=== PATIENT | female | born 1980 | race Caucasian/White ===

== ENCOUNTER 2020-03-14 12:16 | Outpatient (REF) | payer OTHER, SELFPAY | END 2020-03-14 12:17 | disposition home or self-care (01) | LOC: HO.LAB 12:16 | PROVIDERS: Visit Provider Internal Medicine | DX: Z20.828 Contact with and (suspected) exposure to other viral communicable diseases (principal) | CPT/HCPCS: 87635 ==

== ENCOUNTER 2020-04-22 10:00 | Outpatient (RCR) | payer OTHER, SELFPAY | END 2020-04-25 23:55 | disposition home or self-care (01) | LOC: HO.PAOS 10:00 | PROVIDERS: Visit Provider Counselor Mental Health | DX: F43.23 Adjustment disorder with mixed anxiety and depressed mood (principal); F10.10 Alcohol abuse, uncomplicated; Z63.0 Problems in relationship with spouse or partner | CPT/HCPCS: 90834 ==

== ENCOUNTER 2021-01-31 10:32 | Outpatient (REF) | payer OTHER, SELFPAY | END 2021-01-31 10:33 | disposition home or self-care (01) | LOC: HO.LAB 10:32 | PROVIDERS: PCP Internal Medicine; Visit Provider Internal Medicine | DX: Z20.822 Contact with and (suspected) exposure to COVID-19 (principal) | CPT/HCPCS: C9803; U0003; U0005 ==

== ENCOUNTER → 2021-10-27 10:54 | Outpatient (BNVA) | payer SELFPAY | PROVIDERS: PCP Internal Medicine; Visit Provider Internal Medicine | DX: Z02.79 Encounter for issue of other medical certificate (principal) ==

== ENCOUNTER 2021-12-13 22:20 | Emergency (ER) | payer OTHER, SELFPAY ==
[2021-12-13 22:26] VITALS: BP 154/93; PULSE 74; RESP 18; TEMP 36.6; O2SAT 99; BMI 30.9
--- NOTE | 2021-12-13 23:32 | ED_ITS ---
HPI - General Adult General Chief complaint: General Medical Stated complaint: Dental pain Time Seen by Provider: 12/13/21 23:32 Source: patient Mode of arrival: ambulatory Limitations: no limitations History of Present Illness HPI narrative: 41-year-old female presenting to the emergency department complaints of tooth pain to left upper teeth and left lower teeth times a week and half. Patient tells me that about a year ago she lost a filling to the left upper to, since then she has been experiencing sensitivity to that area. She now reports pain particularly with hot and cold foods, she tells me it is a sharp pain at times radiates to her jaw. She reports it has been worsening over the past week and half however she has been on vacation has not been able to see a dentist. She tells me she does have a dentist that she can see. She also reports new onset nausea, diarrhea without abdominal pain that started today. Denies any sick contacts, denies changes in dietary habits. Denies fevers, chills, chest pain, shortness of breath, nausea, vomiting, abdominal pain, weakness. Onset (ago): week(s) (1.5) Location: mouth Related Data Home Medications Medication Instructions Recorded Confirmed copper 380 square mm intrauterine intrauterine 02/12/21 device (ParaGard T 380A) fluoxetine 40 mg capsule (Prozac) 40 mg PO DAILY 02/12/21 Previous Rx's Medication Instructions Recorded cephalexin 500 mg capsule 500 mg PO Q8H 7 days #21 caps 02/12/21 valacyclovir 1 gram tablet 2,000 mg PO Q12H 1 day #4 tabs 02/12/21 amoxicillin 500 mg capsule 500 mg PO BID 10 days #20 caps 12/13/21 ondansetron 4 mg disintegrating 4 mg PO ONCE PRN nausea and 12/13/21 tablet vomiting #10 tabs Allergies Allergy/AdvReac Type Severity Reaction Status Date / Time mushroom [MUSHROOM] AdvReac Intermediate NAUSEA & Verified 12/13/21 22:25 VOMITING Review of Systems Review of Systems: Constitutional : No Weight loss, No Fever, No Chills, No Fatigue, No Malaise ENT/Mouth : No sore throat, No Rhinorrhea, + tooth pain, Eyes: No Eye Pain, No Swelling, No Redness Cardiovascular : No Chest Pain, No SOB, No Dyspnea on Exertion, No Orthopnea, No Edema, No Palpitations Respiratory : No Cough, No Sputum, No Wheezing Gastrointestinal : + Nausea, No Vomiting, + Diarrhea, No Constipation, No abdominal Pain, No Hematochezia, No Melena Genitourinary : No Dysuria, No Urinary Frequency, No Hematuria, Musculoskeletal : No joint pain, No Myalgias, No Joint Swelling Skin : No Skin Lesions, No rash Neuro : No Weakness, No Numbness, No Dizziness, No Headache All other systems reviewed and are negative Yes all other systems are reviewed and are negative [facility] Past Medical History Attestation statement: The following information was validated with the patient. Source: old records reviewed and nursing notes reviewed Social History Social History Advance Directives: No Advance Directives Information Provided: No Physical Exam ED Vital Signs: Vital Signs - 24 hr 12/13/21 22:26 Temperature 97.8 F Pulse Rate 74 Respiratory Rate 18 Blood Pressure 154/93 H Pulse Oximetry 99 Oxygen Delivery Method Room Air BMI result Body Mass Index 30.9 vss Appearance: Alert.? Oriented X3.? No acute distress.? Patient speaking in full sentences, controlling secretions well. Head: Normocephalic, atraumatic, no step-offs or deformities Eyes: Pupils equal, round and reactive to light.? ENT: Pharynx normal.?+ pain w. palpation & percussion to teeth 14 &15 & 19 and to the surrounding gums. No palpable abscesses. Uvula midline. Neck: Normal inspection.? Neck supple.? CVS: Normal heart rate and rhythm.? Pulses normal.? Respiratory: No respiratory distress.? Breath sounds normal.? Abdomen: Soft and nontender.? Skin: Skin warm and dry.? Normal skin color.? Normal skin turgor.? Extremities: No lower extremity edema.? No calf ttp. 5/5 strength to bilateral upper and lower extremities Neuro: Oriented X 3.? No motor deficit.? No sensory deficit. CN 2-12 intact Course Reevaluation(s) Reevaluation #1: I advised patient to take amoxicillin 500 mg p.o. b.i.d. times 10 days. And to follow-up with patient's dentist. Educated on worrisome signs and symptoms and when to return. Also educated on proper hydration and bland diet. At this time I feel comfortable with discharge home. Time: 23:36 Medical Decision Making [facility] Narrative Medical decision making narrative: [id number] 41-year-old female presenting with tooth/gum pain times a week worsening, nausea and diarrhea for a few days. Physical examination significant for slight tenderness to palpation of tooth 14, 15, 19 and discomfort with percussion. Pain with palpation to the surrounding gum however no palpable abscesses. No signs of ludwigs, peritonsillar abscess, epiglottitis. Nausea and vomiting likely viral. No signs of acute abdomen. Likely caries or fx of tooth Plan at this time is to obtain a COVID test. Patient will be discharged home on amoxicillin. Medical Records Medical records reviewed: Yes I reviewed the patient's medical records. Lab Data Lab results reviewed: Yes I reviewed the patient's lab results. Critical Care Time Critical Care Time Critical Care Time: No Discharge Plan Discharge Clinical Impression: Pain in tooth, Nausea, Diarrhea, Viral infection Patient Disposition: Home, Self-Care Instructions: Acute Nausea and Vomiting (ED), Acute Diarrhea (ED), Viral Syndrome (ED), Toothache (ED) Additional Instructions: Take your medications as prescribed. If you were prescribed antibiotics today, it is important that you take your medication to their entirety, do not skip any doses, do not finish them early. Follow-up with your primary care provider this week. Please follow-up with her dentist. Return to the emergency department with new or worsening symptoms. Such as fevers, chills, chest pain, shortness of breath, nausea, vomiting, dizziness, headache, vision changes, lethargy Drink plenty of fluids and follow a bland diet, chicken, rice, vegetables. In case of emergency call 911 Prescriptions: New amoxicillin 500 mg capsule 500 mg PO BID 10 Days Qty: 20 0RF ondansetron 4 mg tablet,disintegrating 4 mg PO ONCE PRN (Reason: nausea and vomiting) Qty: 10 0RF No Action cephalexin 500 mg capsule 500 mg PO Q8H 7 Days Qty: 21 0RF valacyclovir 1 gram tablet 2,000 mg PO Q12H 1 Days Qty: 4 0RF Referrals: Physician,Unknown J [Physician] - 2 days
[2021-12-14] MEDS: Amoxicillin 500 MG CAPSULE PO (00:17)
[2021-12-14] MEDS: Ketorolac Tromethamine 15 MG/ML VIAL 30 MG IM (00:17)
[2021-12-14 00:37] LABS: COVID-19 Test Negative (Negative)
== END 2021-12-14 00:25 | disposition home or self-care (01) ==
PROVIDERS: Physician Assistant; Emergency Provider Emergency Medicine; PCP Internal Medicine
DX: K08.89 Other specified disorders of teeth and supporting structures (principal); B34.9 Viral infection, unspecified; R11.0 Nausea; R19.7 Diarrhea, unspecified; Z20.822 Contact with and (suspected) exposure to COVID-19
CPT/HCPCS: 87635; 96372; 99283; 99284; J1885

== ENCOUNTER 2025-02-16 19:59 | Emergency (ER) | payer OTHER, SELFPAY ==
--- NOTE | ~2025-02-16 | XR_ITS ---
CLINICAL HISTORY: pain and edema 3 view right ankle Comparison: None provided Findings: No acute fractures or dislocations. Distal fibula and tibia are normal. Tibial plafond is normal. Subtalar articulations are normal. No significant loss of joint space, osteophytes, or erosions. No ankle effusion. No radiopaque foreign body. IMPRESSION: 1. No acute fracture, subluxation, or dislocation. This document has been electronically signed by: Orlando Barrett III, MD PHD on 02/16/2025 22:16:45
--- NOTE | ~2025-02-16 | XR_ITS ---
CLINICAL HISTORY: pain and edema 3 view right foot Comparison: CR - XR ANKLE RT MIN 3V - 02/16/25 21:20 EDT Findings: No fractures or dislocations. Talus and navicular are normally aligned. Calcaneus and cuboid are normally aligned. Cuneiforms are normal. Metatarsals and phalanges are normal. No significant arthritic change or erosions. No effusion. No radiopaque foreign body. IMPRESSION: 1. No acute fracture, subluxation or dislocation.. This document has been electronically signed by: Orlando Barrett III, MD PHD on 02/16/2025 22:17:52
[2025-02-16 20:51] VITALS: BP 167/91; PULSE 75; RESP 22; TEMP 36.7; O2SAT 99; BMI 34.0
--- NOTE | 2025-02-16 22:57 | ED_ITS ---
HPI - Extremity Problem General Chief complaint: Extremity Problem Stated complaint: right foot pain Time Seen by Provider: 02/16/25 22:16 History of Present Illness HPI Narrative: Patient is a 44-year-old female complaining of pain to the right ankle and foot after running. Patient is complaining of pain to the plantar area of her right foot. There was no trauma. Complaining of some mild edema. From home. [place] a snap in that area. Related Data Home Medications ?Medication ?Instructions ?Recorded ?Confirmed copper 380 square mm intrauterine intrauterine 1 device (ParaGard T 380A) fluoxetine 40 mg capsule (Prozac) 40 mg PO DAILY 02/12 Previous Rx's ?Medication ?Instructions ?Recorded cephalexin 500 mg capsule 500 mg PO Q8H 7 days #21 cap s 02/12/21 valacyclovir 1 gram tablet 2,000 mg (2 x 1 gram) PO Q1 2H 1 02/12/21 day #4 tabs amoxicillin 500 mg capsule 500 mg PO BID 10 days #20 c aps 12/13/21 ondansetron 4 mg disintegrating 4 mg PO ONCE PRN nause a and 12/13/21 tablet vomiting #10 tabs Allergies Allergy/AdvReac Type Severity Reaction Status Date / Time mushroom (MUSHROOM) AdvReac Intermediate NAUSEA & Verified 02/16/25 20:51 VOMITING Review of Systems Review of Systems: Foot pain [facility] Past Medical History Attestation statement: The following information was validated with the patient. Physical Exam Exam: Exam: Appearance: Alert. Oriented X3. No acute distress. Eyes: Pupils equal, round and reactive to light. ENT: Pharynx normal. Neck: Normal inspection. Neck supple. No lymph nodes noted. No crepitus CVS: Normal heart rate and rhythm. Pulses normal. Normal S1 and S2 Respiratory: No respiratory distress. Breath sounds normal. No Wheezing. No rales Abdomen: Soft and nontender. No rigidity. No distention. good BS x4 Skin: Skin warm and dry. Normal skin color. Normal skin turgor. Extremities: No lower extremity edema. Neurovascular intact to all extremities. No Lacerations. No Rash Neuro: Oriented X 3. No motor deficit. No sensory deficit. Moving all extermities. No slurred speech. Examination of the right foot showed no tenderness on palpation of the Achilles tendon. No tenderness on palpation of the calf. No tenderness on squeezing the cast. Dorsiflexion intact. Plantar flexion of the foot intact. Pain at the aponeurosis on the plantar surface of the right foot. There is good movement of the toes. There is good sensation. There is good pulses 2+ at dorsalis pedis and patient's skin is intact. Vital Signs: Vital Signs: Last Vital Signs Temp 98.1 F 02/16/25 20:51 Pulse 75 02/16/25 20:51 Resp 22 H 02/16/25 20:51 BP 167/91 H 02/16/25 20:51 Pulse Ox 99 02/16/25 20:51 O2 Del Method Room Air 02/16/25 20:51 BMI result Body Mass Index 34.0 Medical Decision Making Medical Decision Making [facility] Narrative: Question plantar fasciitis versus tendon tear nevertheless will have patient use Motrin follow-up on an outpatient basis no signs of Achilles tear. In stable condition follow-up with orthopedic on an outpatient basis crutches for comfort in stable condition Differential Diagnosis Differential Diagnoses: The differential diagnosis associated with the presentation includes Sprain fracture Lab Data [facility] Lab Attestation statement: I reviewed the patient's lab results. Independent Interpretation I performed an independent interpretation of an: Plain X-Ray (No acute fracture noted) Radiology Impression Discussion of test interpretation with radiology: I have reviewed the radiologist's reading. Prescription Management I considered prescription management with: Pain Medication Patient already has Motrin at home Social Determinants Patient?s care significantly limited by Social Determinants of Health including: Problems related to primary support group Discharge Plan Discharge Clinical Impression: Foot sprain Patient Disposition: Home, Self-Care Instructions: Crutch Instructions (ED), Foot Sprain (ED) Prescriptions: No Action amoxicillin 500 mg capsule 500 mg PO BID 10 Days Qty: 20 0RF ondansetron 4 mg tablet,disintegrating 4 mg PO ONCE PRN (Reason: nausea and vomiting) Qty: 10 0RF cephalexin 500 mg capsule 500 mg PO Q8H 7 Days Qty: 21 0RF valacyclovir 1 gram tablet 2,000 mg PO Q12H 1 Days Qty: 4 0RF Referrals: August Price MD [Physician, Orthopedics] - 02/19/25 Stand Alone Forms: Work/School Release Print Language: [place]
--- NOTE | 2025-02-16 23:17 | MHC.EDTECH ---
anibal bandage given to patient per patient request, she would like to wash her feet before she applies the anibal wrap. patient states my mother is a nurse she will be able to help me. crutches set up for patient at 5'6 and patient ambulates slow and steady
[2025-02-16 23:24] VITALS: BP 167/91; PULSE 75; RESP 22; TEMP 36.7; O2SAT 99
== END 2025-02-16 23:25 | disposition home or self-care (01) ==
PROVIDERS: Emergency Provider Emergency Medicine Emergency Medical Services; PCP Internal Medicine
DX: S93.601A Unspecified sprain of right foot, initial encounter (principal); M79.671 Pain in right foot; M25.571 Pain in right ankle and joints of right foot; R60.0 Localized edema; X50.1XXA Overexertion from prolonged static or awkward postures, initial encounter; Y93.02 Activity, running; Y92.9 Unspecified place or not applicable; Y99.8 Other external cause status; Z79.899 Other long term (current) drug therapy
CPT/HCPCS: 73610; 73630; 99282; 99283

== ENCOUNTER → 2025-02-16 20:58 | Outpatient (BNV) | payer OTHER, SELFPAY | PROVIDERS: Emergency Provider Emergency Medicine Emergency Medical Services; PCP Internal Medicine; Visit Provider Radiology Diagnostic Radiology | DX: M25.571 Pain in right ankle and joints of right foot (principal); R60.0 Localized edema; M79.671 Pain in right foot | CPT/HCPCS: 73610; 73630 ==